=== PATIENT | male | born 1935 | race Caucasian/White ===

== ENCOUNTER 2023-03-28 01:33 | Day surgery (SDC) | payer MEDICARE, SELFPAY ==
--- NOTE | 2023-03-21 12:31 | PC.NURSE ---
Report to the Outpatient Waiting Room, entrance under the green pavilion located off [facility], at time __1000 on date _03/28/23 . Planned Procedure Time: ___1200 . Time changes happen often and if your time is changed the preop area will call you the afternoon before. - You and your visitor will be asked to self-screen and do not enter if you have any COVID symptoms. - A mask is optional within the hospital at this time. Patients may have clear liquids (water, carbonated beverages, clear teas, apple juice) until 3 hours prior to surgery (0900 AM) with a maximum of 20 ounces. - No food from midnight until time of surgery - Infants may have breast milk until 4 hours before surgery, formula 6 hours prior to surgery. - Children will be allowed to drink immediately following surgery. If applicable, please bring a bottle or sippy cup to assist with drinking. Juice, water, soda, and popsicles are readily available. For infants on formula, please bring formula the day of surgery. Pacifiers are allowed. Take the following medications with a SIP of water the morning of surgery: _LEVETIRACETAM, SERTRALINE, INHALER__ DO NOT STOP ANY OF YOUR OTHER PRESCRIPTION MEDICATIONS PRIOR TO SURGERY ?EXCEPT THE FOLLOWING Medications to discontinue per physician MULTIVITAMIN Date to take last dose 03/24/23 Please no make-up, nail ukrainian, hairspray, perfume, deodorant, or body powder the day of surgery. No jewelry (including any body piercings) or valuables the day of surgery, leave them at home. Please take a shower or bath the night before, or the morning of, surgery with an antibacterial soap. Wear comfortable, loose fitting clothing. Children are encouraged to wear pajamas. - Jewelry must be removed prior to entering the operating room. Rings and piercings that are not removed may be cut off. - The hospital will not accept responsibility for valuables. - Please leave all valuables, including medications, at home the day of surgery. If you are going home after surgery, a licensed tier truck driver must drive you home. - NO public transportation without another adult if you receive anesthesia. - We recommend that an adult stay with you for 24 hours following discharge. - We also recommend that you do not drive, make important decision, drink alcoholic beverages, or take any drugs that were not prescribed by your health care provider for at least 24 hours after your discharge time. For Pediatric surgeries, we recommend two adults accompany the child home. Follow any additional instructions given to you from your surgeon. If you or anyone in your household have experienced Covid symptoms in the past week, please notify your surgeon or the nurse liaison at the phone number below for possible testing. Telephone instructions given to _PT'S DAUGHTER ALMAZ__and asked if any additional questions and then verbalized understanding. Patient advised to call surgeon office or pre surgery nurse liaison [phone] if any additional questions.
--- NOTE | 2023-03-27 14:32 | WPDANESEPPF ---
Anes - Initial Pre Proc Eval Procedure: Operation Date: 03/28/23 12:00 Proposed Procedures p Flexible Cystoscopy, Dilation Phimosis - Matt Jauregui MD s Possible Revision of Circumcision - Matt Jauregui MD Date/Time: 03/27/23 14:32 Surgeon: Matt Jauregui MD Pre Op Diagnosis: Phimosis UTI Patient Data Age: 87 Gender: M Height: 1.73 m Weight: 59.63 kg Allergies Allergy/AdvReac Type Severity Reaction Status Date / Time Penicillins Allergy Severe RASH Verified 03/28/23 11:12 Home Medications Medication Instructions Recorded Confirmed Type blood sugar diagnostic (Contour #100 ea 08/18/22 03/21/23 Rx Next Test Strips) omeprazole 20 mg capsule,delayed See Rx Instructions .Route 12/05/22 03/21/23 Rx release .COMPLEX #180 caps cholecalciferol (vitamin D3) 25 25 mcg PO DAILY 12/28/22 03/21/23 History mcg (1,000 unit) capsule cyanocobalamin (vitamin B-12) 1,000 mcg PO DAILY 12/28/22 03/21/23 History 1,000 mcg tablet furosemide 40 mg tablet 40 mg PO QAM PRN edema 12/28/22 03/21/23 History meclizine 25 mg tablet 25 mg PO TID PRN dizziness 12/28/22 03/21/23 History multivitamin with minerals-folic 1 tablet PO DAILY 12/28/22 03/21/23 History acid 200 mcg chewable tablet (Men's Multivitamin Gummies) oxygen-air delivery systems 12/28/22 03/21/23 History risperidone 0.5 mg tablet 0.5 mg PO DAILY 12/28/22 03/21/23 History (Risperdal) zinc gluconate 50 mg tablet 50 mg PO DAILY 12/28/22 03/21/23 History fluticasone propionate 50 2 spray intranasal DAILY PRN 12/30/22 03/21/23 History mcg/actuation nasal allergy symptoms spray,suspension albuterol sulfate 2.5 mg/3 mL 2.5 mg (3 mL) inhalation Q8H PRN 01/13/23 03/21/23 Rx (0.083 %) solution for nebulization Shortness of Breath #90 mL benzonatate 100 mg capsule 100 mg PO TID PRN cough #30 caps 01/13/23 03/21/23 Rx sertraline 100 mg tablet 100 mg PO DAILY #90 tabs 01/18/23 03/21/23 Rx tamsulosin 0.4 mg capsule (Flomax) 0.4 mg PO DAILY #90 caps 01/18/23 03/21/23 Rx levetiracetam 500 mg tablet 250 mg PO Q12H #180 tabs 02/02/23 03/21/23 Rx potassium chloride 10 mEq See Rx Instructions .Route 03/01/23 03/21/23 Rx tablet,extended .COMPLEX #90 tabs release(part/cryst) (Klor-Con M) iron 10 mg DAILY 03/21/23 03/21/23 History Other studies: 06/06 echo ef 40-45%, mild/mod /MR, mod pulm htn Patient hx anesthesia problems: none Family hx anesthesia problems: none Results Review: All pre-operative results and documents have been reviewed as part of the pre-operative evaluation. 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 Seizure Unspecified systolic (congestive) heart failure UTI symptoms Voiding difficulty Social History Social History Smoking packs per day: 0.5 Smoking cigarettes per day: 10.0 Years smoked: 20 Smoking pack-years: 10.00 Smoking status: Former smoker Tobacco type: cigarettes Second hand tobacco smoke exposure: No Alcohol intake: never Substance use: never Substance use type: does not use Lack of Transportation: No Lack of Food: Never True Current Housing: I Have Housing Concerned About Future Housing: No Difficulty Paying Gas/Electric Bills: No Difficulty Paying for Meds: No Currently Unemployed: No Education: High School Diploma/GED Difficulty w/ Childcare or Family Care
[2023-03-28] VITALS (7 sets, daily range): BP systolic 95–139; BP diastolic 52–65; PULSE 64–70; RESP 14–21; TEMP 35.9–36.4; O2SAT 94–100
[2023-03-28] MEDS: LACTATED RINGERS 1,000 ML 30 ML IV CONT (11:10)
--- NOTE | 2023-03-28 12:23 | WPDHPUPDATE1 ---
History and Physical Update Update Date/Time: 03/28/23 12:23 History and Physical has been reviewed, including an updated exam of the patient. There are NO changes in the patient's condition. Risks, benefits, and alternatives have been discussed and questions answered. Patient agrees to proceed with procedure. Proceed with revision of circumcision, flexible cystoscopy
[2023-03-28] MEDS: ceFAZolin 2 GM/D5W 50 ML 2 GM/50 ML BAG IVPB (13:06)
[2023-03-28] MEDS: BUPivacaine HCL 0.5% 10 ML AMP 20 ML INFILTRATE (13:06)
[2023-03-28] MEDS: LIDOCAINE HCL 2% GEL UROJET 10 ML PKG MUCOUS MEM (13:30)
--- NOTE | 2023-03-28 14:02 | W.PM.PROC2 ---
Procedure Note - Detailed Date of Procedure 03/28/23 Pre-op Diagnosis Phimosis UTI Post-op Diagnosis Same Procedure Performed Revision/circumcision, lysis of penile glanular adhesion, flexible cystoscopy Surgeon Matt Jauregui MD Anesthesia General and Local Description of Procedure Patient was taken the operative suite correctly identified. Once anesthesia was obtained I did a penile block using 0.5% Marcaine. Patient had a very tight phimosis. We incised the phimosis. It was noted that the skin had adhered to the glans. It was essentially circumferential. I was able to take these down. I then excised a portion of the tight phimotic skin. Hemostasis was achieved using electrocautery. I reapproximated the foreskin to the sub glanular tissue using 3-0 chromic in interrupted fashion. Flexible cystoscopy was then performed. There were no urethral strictures. Prostate did not appear obstructive in nature. The bladder itself had 1 to 2+ trabeculation with cellule formation. No tumors noted. Scope was removed. 2% viscous lidocaine was inserted into the urethra. Antibiotic ointment was placed around the circumcision incision. Xeroform gauze was placed as well as a dressing. He was taken recovery stable condition. He will remove the dressing in the morning and apply ointment 2 to 3 times a day. This completes sedation please send a copy of this to my office Estimated Blood Loss 0 Drains No Packing No Pathology Yes Complications No immediate complications Condition Stable Disposition PACU
[2023-03-28] MEDS: HEPARIN SODIUM LOCK FLUSH 500 UNITS/5 ML VIAL IV PUSH (15:42)
== END 2023-03-28 15:59 | disposition home or self-care (01) ==
PROVIDERS: PCP Physician Assistant Medical; Visit Provider Urology
PROC: 0TJB8ZZ Inspection of Bladder, Via Natural or Artificial Opening Endoscopic (ICD-10-PCS; CPT 52000; principal; 2023-03-28 12:00)
PROC: (CPT 54161; 2023-03-28 12:00)
DX: N47.1 Phimosis (principal); N47.5 Adhesions of prepuce and glans penis; N32.89 Other specified disorders of bladder; I13.0 Hypertensive heart and chronic kidney disease with heart failure and stage 1 through stage 4 chronic kidney disease, or unspecified chronic kidney disease; I50.20 Unspecified systolic (congestive) heart failure; N18.30 Chronic kidney disease, stage 3 unspecified; N40.0 Benign prostatic hyperplasia without lower urinary tract symptoms; G40.909 Epilepsy, unspecified, not intractable, without status epilepticus; Z85.118 Personal history of other malignant neoplasm of bronchus and lung; Z85.72 Personal history of non-Hodgkin lymphomas; Z79.51 Long term (current) use of inhaled steroids; Z87.891 Personal history of nicotine dependence
CPT/HCPCS: 54161; 52000; 88304; A9270; J0690; J1100; J1642; J2405; J2704; J7120